=== PATIENT | male | born 1950 | race Caucasian/White ===

== ENCOUNTER 2018-08-16 02:43 | Emergency (ER) | payer MEDICARE, OTHER ==
[~2018-08-16] VITALS: Ht 182.9 cm; Wt 99.8 kg
[2018-08-16 02:46] VITALS: Ht 182.9 cm; Wt 99.8 kg
[2018-08-16] MEDS ORDERED: PROPECIA1 MG PO (02:47)
[2018-08-16] MEDS ORDERED: NEXIUM20 MG PO (02:47)
[2018-08-16 03:15] LABS: APPEARANCE CLEAR (CLEAR); BACTERIA NONE SEEN /hpf (NONE SEEN); BILIRUBIN NEGATIVE (NEGATIVE); COLOR YELLOW (YELLOW); EPITHELIAL CELLS NSEEN /hpf (0-5); GLUCOSE NEGATIVE (NEGATIVE); KETONE NEGATIVE (NEGATIVE); NITRITE NEGATIVE (NEGATIVE); PROTEIN TRACE mg/dL (NEGATIVE); SPECIFIC GRAVITY 1.015 (1.005-1.020); UROBILINOGEN NORMAL (NORMAL); WHITE CELLS - URINE NSEEN /hpf (0-5)
[2018-08-16 03:19] LABS: BASOPHILS 0.3 % (0-2); EOSINOPHILS 1.8 % (0-7); HEMATOCRIT 42.6 % (42.0-54.0); HEMOGLOBIN 14.4 g/dL (13.5-17.5); IMMATURE GRANULOCYTES 0.2 % (0-5); LYMPHOCYTES 19.4 % (15-50); MCH 30.3 pg (26.0-34.0); MCHC 33.8 g/dL (31.0-37.0); MCV 89.7 fL (80.0-100.0); MEAN PLATELET VOLUME 10.6 fL (7.4-10.4); MONOCYTES 10.5 % (2-11); NEUTROPHILS 67.8 % (40-80); PLATELET COUNT 179 10x3/uL (130-400); RBC 4.75 10x6/uL (4.20-6.10); RDW 12.9 % (11.5-14.5)
[2018-08-16 03:33] LABS: ALBUMIN 3.7 g/dL (3.4-5.0); ALKALINE PHOSPHATASE 81 U/L (46-116); ALT (SGPT) 27 U/L (10-68); AMYLASE - SERUM 56 U/L (25-115); BILIRUBIN - TOTAL 0.76 mg/dL (0.2-1.3); CALC OSMOLALITY 281 mosm/kg (275-300); CALCIUM 8.6 mg/dL (8.5-10.1); CHLORIDE - SERUM 105 mmol/L (98-107); CREATININE - SERUM 1.1 mg/dL (0.6-1.3); GLUCOSE 114 mg/dL (74-106); LIPASE 110 U/L (73-393); POTASSIUM - SERUM 4.4 mmol/L (3.5-5.1); PROTEIN - SERUM 7.1 g/dL (6.4-8.2); SODIUM 140 mmol/L (136-145); UREA NITROGEN 18 mg/dL (7-18); eGFR NON AFRICAN AMERICAN 71 mL/min (90-120)
[2018-08-16 03:39] LABS: TROPONIN-I < 0.017 ng/mL (0.000-0.060)
[2018-08-16] MEDS ORDERED: ZOFRAN ODT4 MG/UDTAB PO (07:33)
[2018-08-16] MEDS ORDERED: HYDROCODON-ACE1 EA10 PO (07:33)
[2018-08-16] MEDS ORDERED: FLOMAX0.4 MG PO (07:33)
[2018-08-16 08:15] VITALS: BP 163/99
== END 2018-08-16 08:32 | disposition home or self-care (01) ==
LOC: D.ER 02:43
PROVIDERS: Family Medicine
DX: N20.0 Calculus of kidney (principal); K76.9 Liver disease, unspecified; N23 Unspecified renal colic

== ENCOUNTER → 2018-09-02 07:40 | Outpatient (CLI) | payer MEDICARE, OTHER ==
[~2018-09-02 07:40] MED LIST: FLOMAX0.4 MG PO; HYDROCODON-ACE1 EA10 PO; NEXIUM20 MG PO; PROPECIA1 MG PO; ZOFRAN ODT4 MG/UDTAB PO
== END | disposition home or self-care (01) ==
LOC: D.MRI 07:40
PROVIDERS: ATTEND Internal Medicine Gastroenterology
DX: K76.89 Other specified diseases of liver (principal)